=== PATIENT | female | born 1945 | race African-American/Black ===

== ENCOUNTER 2020-09-15 12:23 | Inpatient (IN) | payer MEDICARE ==
[2020-09-15 12:58] LABS: #Basophils 0.1 thou/uL (0.0-0.2); #Eosinphils 0.1 thou/uL (0.0-0.7); #Lymphocytes 1.8 thou/uL (1.20-3.40); #Monocytes 0.6 thou/uL (0.11-0.59); #Neutrophils 6.1 thou/uL (1.40-6.50); %Basophils 0.7 % (0.0-1.0); %Eosinophils 1.7 % (0.0-10.0); %Lymphocytes 20.6 % (21.0-51.0); %Monocytes 6.8 % (0.0-10.0); %Neutrophils 70.1 % (42.0-75.0); Hemoglobin 6.9 g/dL (12.0-16.0); Mean Corpuscular HGB CONC 32.3 g/dL (32.0-36.0); Mean Corpuscular Hemoglobin 26.3 pg (27.0-31.0); Mean Corpuscular Volume 81.5 fL (78.0-98.0); Platelet Count 328 thou/uL (130-400); RBC Distribution Width 15.8 % (11.5-14.5); Red Blood Cell (RBC) Count 2.62 mill/uL (4.20-5.40); White Blood Cell (WBC) Count 8.7 thou/uL (4.8-10.8)
[2020-09-15 13:30] LABS: ALT (SGPT) Less than 7 U/L (8-55); AST (SGOT) 11 U/L (5-34); Albumin 3.6 g/dL (3.4-4.8); Alkaline Phosphatase 78 U/L (40-110); Anion Gap 15 mmol/L (10-20); BUN (Urea Nitrogen) 58 mg/dL (9.8-20.1); Bilirubin, Total 0.5 mg/dL (0.2-1.2); Calc. Creatinine Clearance 0 mL/min (70-130); Calcium 9.8 mg/dL (7.8-10.44); Carbon Dioxide 18 mmol/L (23-31); Chloride 110 mmol/L (98-107); Globulin 4.2 g/dL (2.4-3.5); Glucose 75 mg/dL (83-110); Potassium 5.8 mmol/L (3.5-5.1); Protein, Total 7.8 g/dL (5.8-8.1); Sodium 137 mmol/L (136-145)
--- NOTE | 2020-09-15 13:45 | RAD ---
PORTABLE CHEST 1 VIEW: Date: 09/15/2020 Time: 1310 hours HISTORY: Chronic renal failure. Patient on dialysis. Dyspnea. FINDINGS/IMPRESSION: The heart size is borderline. The aorta is tortuous. There is plate of linear atelectatic change in t he left lower lung. No lobar consolidation, pneumothoraces, adriana pulmonary edema, or large effusions are seen. POS: OFF
[2020-09-15 17:12] LABS: HBSAg Index 0.34 S/CO (0-0.99); Hep B Surf Ag Non-Reactive S/CO (NonReactive); Hep C IgG Ab Non-Reactive (NonReactive); Hep C Index 0.14 S/CO (0-0.79)
[2020-09-15] MEDS ORDERED: CEFAZOLIN 2 GM in Premix Bag 1 BAG IVPB SCH (17:45)
[2020-09-15] MEDS ORDERED: Epoetin (ESRD) 20,000 UNITS/ML IVP ONE (18:05)
[2020-09-15] MEDS ORDERED: Epoetin (ESRD) 20,000 UNITS/ML IVP SCH (18:05)
[2020-09-15] MEDS ORDERED: Tuberculin PPD 0.1 ML VIAL I-DERMAL SCH ×3 (18:15→23:30)
[2020-09-15] MEDS ORDERED: EPOETIN ALFA-EPBX (ESRD) 10,000 UNIT/ML VIAL IVP SCH (18:15)
[2020-09-15 18:18] LABS: Hep B Surf AB Indeterminate (NonReactive)
[2020-09-15 18:19] LABS: HBSAB Concentration 10.57 mIU/mL
[2020-09-15 18:20] LABS: Hep B Core Total Index 4.37 S/CO (0-0.79)
[2020-09-15 18:21] LABS: Hep B Core Total Ab Reactive (NonReactive)
[2020-09-15] MEDS ORDERED: Acetaminophen 650 MG Suppository PR PRN (22:06)
[2020-09-15] MEDS ORDERED: Dextrose 50% Abboject 50 ML SYRINGE SLOW IVP PRN (22:09)
[2020-09-15] MEDS ORDERED: Dextrose 5% in Water 1,000 ML IV PRN (22:09)
[2020-09-15 22:53] LABS: Hemoglobin 6.4 g/dL (12.0-16.0)
--- NOTE | 2020-09-15 23:04 | CON ---
DATE OF CONSULTATION: HISTORY OF PRESENT ILLNESS: Milton Pineda is a 75-year-old black female with chronic kidney disease secondary to hypertension, presents to the emergency room with abnormal labs, in need of dialysis access. I have been asked by Dr. Pickett to see her regarding placement of hemodialysis catheter, Trialysis and possible graft. I saw her a few months ago and in April of 2020, she had a marking ultrasound with suboptimal veins and noted that a prosthetic graft, access was postponed until close to the time of dialysis. She now presents with a white count of 8, hemoglobin 6.9. Sodium 137, potassium 5.8, BUN 58, creatinine 8.31. I have been asked by Dr. Pickett to place a hemodialysis catheter and plan is to place a groin Trialysis catheter and in 24 to 48 hours, plan placement of a hemodialysis catheter and graft most likely. She understands risks and benefits, consents. ALLERGIES: NONE. SOCIAL HISTORY: Tobacco: None. Alcohol none. MEDICATIONS: Not reconciled. PAST SURGICAL HISTORY: Noncontributory. REVIEW OF SYSTEMS: Noncontributory. PAST MEDICAL HISTORY: Hypertension. PHYSICAL EXAMINATION: VITAL SIGNS: 150/88, respiratory rate 18, heart rate 76. HEAD, EARS, EYES, NOSE, AND THROAT: Unremarkable. LUNGS: Clear to auscultation. CARDIAC: Regular rate and rhythm without murmur or gallop. ABDOMEN: Soft, nontender. EXTREMITIES: Unremarkable. Palpable radial pulses. LABORATORY DATA: As noted above. ASSESSMENT AND PLAN: 1. End-stage renal disease. Plan, placement of a hemodialysis catheter. She understands risks and benefits, consents. 2. Hypertension. 3. Anemia. 4. Hyperkalemia. 5. Poor veins by ultrasound vein mapping in April. Job ID: [id number]
[2020-09-15 23:16] LABS: Anion Gap 14 mmol/L (10-20); BUN (Urea Nitrogen) 35 mg/dL (9.8-20.1); Calc. Creatinine Clearance 0 mL/min (70-130); Calcium 9.4 mg/dL (7.8-10.44); Carbon Dioxide 24 mmol/L (23-31); Chloride 106 mmol/L (98-107); Glucose 92 mg/dL (83-110); Magnesium 2.4 mg/dL (1.6-2.6); Potassium 4.4 mmol/L (3.5-5.1); Sodium 140 mmol/L (136-145)
[2020-09-15] MEDS: Acetaminophen 325 MG TAB PO PRN (23:20)
--- NOTE | 2020-09-15 23:34 | PDOC.HHP ---
Hospitalist HPI History of Present Illness: ADMISSION DATE: 09/15/2020 TIME OF ASSESSMENT: 2199 PRIMARY CARE PHYSICIAN: Fredy francisco CHIEF COMPLAINT: Abnormal labs HPI: This is a 75-year-old woman who presents to the emergency department due to issues with her potassium. She states she had laboratory studies 3 days ago and then received a call today instructing her to go to the ER due to abnormal labs. She was told her potassium was high and that she would need to have dialysis done. She has never had dialysis in the past. Reports feeling well in herself in recent days. Complains of chills and states she often feels cold easily but this is typical for her. She has not had any recent fevers or sweats. She was seen by Dr. Luciano who placed a hemodialysis catheter she has completed dialysis without any difficulties. She denies having any complaints and states she feels well in herself. Has not had any chest pain, palpitations or shortness of breath. No recent cough or hemoptysis. Denies having any lightheadedness or dizziness. No nausea or vomiting. Denies any urinary symptoms or bowel c hanges. She has not noted any black-colored stools or bright red blood per rectum. She suffers from chronic anemia and has required transfusions in the past however more recently she has been given iron infusions. ED COURSE: Baseline chest x-ray done in the emergency department showed a borderline heart size with a tortuous aorta. A plates of linear atelectatic change seen in the left lower lung. Labs showed a hemoglobin of 6.9, hematocrit 21.3, platelets 328, sodium 137, potassium 5.8, BUN 58, creatinine 8.31, GFR 6, glucose 75, LFTs normal Allergies/Adverse Reactions: Allergy/AdvReac Type Severity Reaction Status Date / Time No Known Allergies Allergy Verified 09/15/20 21:10 Home Medications: Medication Instructions Recorded Confirmed Type Amlodipine Besylate [amLODIPine 10 mg PO DAILY 09/15/20 09/15/20 History Besylate] Atorvastatin Calcium 20 mg PO HS 09/15/20 09/15/20 History Gabapentin 100 mg PO BID 09/15/20 09/15/20 History Metoprolol Tartrate 100 mg PO DAILY 09/15/20 09/15/20 History Sodium Bicarbonate 2 tab PO TID 09/15/20 09/15/20 History cloNIDine [Catapres] 0.1 mg PO BID 09/15/20 09/15/20 History hydrALAZINE HCl [Hydralazine HCl] 100 mg PO TID 09/15/20 09/15/20 History Past History: PAST MEDICAL HISTORY: 1. Hypertension 2. Chronic anemia 3. End-stage renal disease 4. History of diabetes, controlled with diet PAST SURGICAL HISTORY: None SOCIAL HISTORY: Patient lives with her family. Denies any tobacco use, alcohol consumption or drug use. FAMILY HISTORY: Noncontributory Hospitalist Exam Vitals: Vital Signs (12 hours) Temp Pulse BP Pulse Ox 09/15/20 19:55 98.6 F 67 186/80 H 100 General Appearance: NAD, awake alert General - other findings: Vitals: Temp 98.6, HR Troy VII, O2 sat 100% on room air, BP 186/80. Eye: PERRL, anicteric sclera ENT: normocephalic atraumatic, no oropharyngeal lesions, moist mucosa Neck: supple, no lymphadenopathy Heart: RRR, normal peripheral pulses Respiratory: CTAB, normal chest expansion Gastrointestinal: soft, non-tender, non-distended, normal bowel sounds, no guarding, no rigidity Extremities: 1+ LE edema Skin: normal turgor, no lesions, no rashes Skin - other findings: Lower legs notable for dry skin with scaling Neurological: cranial nerve grossly intact, normal sensation to touch, no weakness, no focal deficits Musculoskeletal: normal tone, normal strength, no muscle wasting Psychiatric: normal affect, normal behavior, A&O x 3 Hospitalist Results Result Diagrams: 09/15/20 22:42 09/15/20 22:42 Lab results: Laboratory Last Values WBC 8.7 thou/uL (4.8-10.8) 09/15/20 12:50 RBC 2.62 mill/uL (4.20-5.40) L 09/15/20 12:50 Hgb 6.4 g/dL (12.0-16.0) L 09/15/20 22:42 Hct 20.4 % (36.0-47.0) L 09/15/20 22:42 MCV 81.5 fL (78.0-98.0) 09/15/20 12:50 MCH 26.3 pg (27.0-31.0) L 09/15/20 12:50 MCHC 32.3 g/dL (32.0-36.0) 09/15/20 12:50 RDW 15.8 % (11.5-14.5) H 09/15/20 12:50 Plt Count 328 thou/uL (130-400) 09/15/20 12:50 MPV 8.0 fL (7.4-10.4) 09/15/20 12:50 Neutrophils % 70.1 % (42.0-75.0) 09/15/20 12:50 Lymphocytes % 20.6 % (21.0-51.0) L 09/15/20 12:50 Monocytes % 6.8 % (0.0-10.0) 09/15/20 12:50 Eosinophils % 1.7 % (0.0-10.0) 09/15/20 12:50 Basophils % 0.7 % (0.0-1.0) 09/15/20 12:50 Neutrophils # 6.1 thou/uL (1.40-6.50) 09/15/20 12:50 Lymphocytes # 1.8 thou/uL (1.20-3.40) 09/15/20 12:50 Monocytes # 0.6 thou/uL (0.11-0.59) H 09/15/20 12:50 Eosinophils # 0.1 thou/uL (0.0-0.7) 09/15/20 12:50 Basophils # 0.1 thou/uL (0.0-0.2) 09/15/20 12:50 Sodium 140 mmol/L (136-145) 09/15/20 22:42 Potassium 4.4 mmol/L (3.5-5.1) 09/15/20 22:42 Chloride 106 mmol/L (98-107) 09/15/20 22:42 Carbon Dioxide 24 mmol/L (23-31) 09/15/20 22:42 Anion Gap 14 mmol/L (10-20) 09/15/20 22:42 BUN 35 mg/dL (9.8-20.1) H 09/15/20 22:42 Creatinine 5.78 mg/dL (0.6-1.1) H 09/15/20 22:42 Estimated GFR (MDRD) 9 09/15/20 22:42 Glucose 92 mg/dL (83-110) 09/15/20 22:42 POC Glucose 86 mg/dL (70-100) 09/15/20 22:51 Lactic Acid 2.0 mmol/L (0.5-2.2) 09/15/20 22:42 Calcium 9.4 mg/dL (7.8-10.44) 09/15/20 22:42 Magnesium 2.4 mg/dL (1.6-2.6) 09/15/20 22:42 Total Bilirubin 0.5 mg/dL (0.2-1.2) 09/15/20 12:50 AST 11 U/L (5-34) 09/15/20 12:50 ALT Less than 7 U/L (8-55) L 09/15/20 12:50 Alkaline Phosphatase 78 U/L (40-110) 09/15/20 12:50 Troponin I 0.013 ng/mL (< 0.028) 09/15/20 12:50 Serum Total Protein 7.8 g/dL (5.8-8.1) 09/15/20 12:50 Albumin 3.6 g/dL (3.4-4.8) 09/15/20 12:50 Globulin 4.2 g/dL (2.4-3.5) H 09/15/20 12:50 Albumin/Globulin Ratio 0.9 g/dL (1.2-2.2) L 09/15/20 12:50 Hep Bs Antigen Non-Reactive S/CO (NonReactive) 09/15/20 12:50 Hep Bs Antibody Indeterminate (NonReactive) 09/15/20 12:50 Hep Bs Antibody Index 10.57 mIU/mL 09/15/20 12:50 Hep B Core Total Ab Reactive (NonReactive) H 09/15/20 12:50 Hepatitis C Antibody Non-Reactive (NonReactive) 09/15/20 12:50 Chest x-ray Status: report reviewed by al Hospitalist H&P A/P (1) Hyperkalemia Code(s): E87.5 - HYPERKALEMIA Status: Acute Assessment and Plan: S/p hemodialysis Repeat BMP to re-assess potassium level Baseline EKG ordered (2) ESRD needing dialysis Code(s): N18.6 - END STAGE RENAL DISEASE; Z99.2 - DEPENDENCE ON RENAL DIALYSIS Status: Acute Assessment and Plan: S/p HD Further recommendations as per Dr. Pickett Monitor renal function (3) Chronic anemia Code(s): D64.9 - ANEMIA, UNSPECIFIED Status: Chronic Assessment and Plan: Likely secondary to ESRD Repeat H/H to assess for further decline Type & Screen ordered Consider transfusion Iron studies ordered (4) History of diet-controlled gestational diabetes mellitus Code(s): Z86.32 - PERSONAL HISTORY OF GESTATIONAL DIABETES Status: Chronic Assessment and Plan: Monitor glucose Accu-cheks ACHS Hypoglycemia protocol ordered (5) Essential hypertension Code(s): I10 - ESSENTIAL (PRIMARY) HYPERTENSION Status: Chronic Assessment and Plan: Monitor BP Resume home meds once verified Plan: DVT Prophylaxis with mechanical SCDs CODE STATUS FULL Case discussed with attending who agrees with plan as above.
[2020-09-16 01:38] LABS: Iron 19 ug/dL (50-170); Iron Binding Capacity, Total 206 mcg/dL (265-497)
[2020-09-16 04:41] LABS: Ferritin 60.32 ng/mL (10-291)
[2020-09-16 07:00] LABS: #Basophils 0.1 thou/uL (0.0-0.2); #Eosinphils 0.1 thou/uL (0.0-0.7); #Lymphocytes 1.7 thou/uL (1.20-3.40); #Monocytes 0.8 thou/uL (0.11-0.59); %Basophils 0.6 % (0.0-1.0); %Eosinophils 1.2 % (0.0-10.0); %Lymphocytes 19.3 % (21.0-51.0); %Monocytes 9.2 % (0.0-10.0); %Neutrophils 69.7 % (42.0-75.0); Hemoglobin 6.8 g/dL (12.0-16.0); Mean Corpuscular HGB CONC 32.4 g/dL (32.0-36.0); Mean Corpuscular Hemoglobin 27.4 pg (27.0-31.0); Mean Corpuscular Volume 84.4 fL (78.0-98.0); Mean Platelet Volume 8.2 fL (7.4-10.4); Platelet Count 269 thou/uL (130-400); RBC Distribution Width 18.3 % (11.5-14.5); Red Blood Cell (RBC) Count 2.48 mill/uL (4.20-5.40); White Blood Cell (WBC) Count 8.6 thou/uL (4.8-10.8)
[2020-09-16 07:20] LABS: ALT (SGPT) Less than 7 U/L (8-55); AST (SGOT) 10 U/L (5-34); Albumin 3.1 g/dL (3.4-4.8); Alkaline Phosphatase 67 U/L (40-110); Anion Gap 12 mmol/L (10-20); BUN (Urea Nitrogen) 39 mg/dL (9.8-20.1); Bilirubin, Total 0.7 mg/dL (0.2-1.2); Calc. Creatinine Clearance 0 mL/min (70-130); Calcium 9.3 mg/dL (7.8-10.44); Carbon Dioxide 23 mmol/L (23-31); Chloride 110 mmol/L (98-107); Globulin 3.5 g/dL (2.4-3.5); Glucose 74 mg/dL (83-110); Protein, Total 6.6 g/dL (5.8-8.1); Sodium 140 mmol/L (136-145)
--- NOTE | 2020-09-16 08:24 | CON ---
DATE OF CONSULTATION: 09/15/2020 CONSULTING PHYSICIAN: ER physician. REASON FOR CONSULTATION: Worsening renal labs. REASON FOR ADMISSION: Worsening labs. HISTORY OF PRESENT ILLNESS: A 75-year-old female with history of hypertension, type-2 diabetes, CKD, episode of gout, Parkinson disease, came to the hospital with abnormal labs. Dr. Pickett has been following her and her labs are getting worse. She was edematous and was advised to come to the hospital to start on dialysis. She had dialysis catheter placement by Dr. Luciano in the ER and was seen during dialysis and tolerating well. Plan is to start on dialysis and place her at [place], which is closer to her home. No nausea, vomiting, chest pain, or palpitation reported. PAST MEDICAL HISTORY: Positive for; 1. Chronic kidney disease. 2. Type 2 diabetes. 3. Hypertension. 4. Episode of gout. 5. Anemia. 6. Gastritis. 7. Parkinson disease. PAST SURGICAL HISTORY: None reported. HOME MEDICATIONS: Reviewed. ALLERGIES: NO KNOWN DRUG ALLERGIES. SOCIAL HISTORY: Former smoker. No alcohol or illicit drug abuse. FAMILY HISTORY: No history of kidney disease. REVIEW OF SYSTEMS: CONSTITUTIONAL: Negative for weight loss or gain, ability to conduct usual activities. SKIN: Negative for rash, itching. EYES: Negative for double vision, pain. ENT/MOUTH: Negative for nose bleeding, neck stiffness, pain, tenderness. CARDIOVASCULAR: Negative for palpitations, dyspnea on exertion, orthopnea. RESPIRATORY: Negative for shortness of breath, wheezing, cough, hemoptysis, fever or night sweats. GASTROINTESTINAL: Negative for poor appetite, abdominal pain, heartburn, nausea, vomiting, constipation, or diarrhea. GENITOURINARY: Negative for urgency, frequency, dysuria, nocturia. MUSCULOSKELETAL: Negative for pain, swelling. NEUROLOGIC/PSYCHIATRIC: Negative for anxiety, depression. ALLERGY/IMMUNOLOGIC: Negative for skin rash, bleeding tendency. PHYSICAL EXAMINATION: GENERAL: This is a well-built female, in no apparent distress. VITAL SIGNS: Reviewed. HEENT: Atraumatic, normocephalic. Oral mucosa is moist. NECK: Supple. CV: S1, S2. Rate and rhythm regular. RESPIRATORY: Clear. GI: Abdomen is soft. MUSCULOSKELETAL: 2+ edema. DERMATOLOGIC: No skin rash. NEUROLOGICAL: Alert and awake. PSYCHIATRIC: Normal mood and affect. LABORATORY DATA: Hemoglobin is 6.9. Potassium 5.8, BUN is 58, creatinine is 8.2. ASSESSMENT AND PLAN: 1. End-stage renal disease. Plan is to start dialysis. A temporary dialysis access was placed. Appreciate help from surgery and plan to have fistula and tunneled dialysis catheter later on once she is more stable. 2. Anemia. We will add Epogen. 3. Hyperkalemia. 4. . 5. Hypoalbuminemia. 6. Proteinuria. 7. History of diabetes. 8. History of hypertension. Plan is to add JOSE. Follow up with Case Management for outpatient placement. The patient is seen during dialysis today and tolerating well. We will plan for 2 hours of dialysis today. We will follow. Thank you for the consult. Job ID: [id number]
--- NOTE | 2020-09-16 08:42 | OP ---
DATE OF PROCEDURE: 09/15/2020 PREOPERATIVE DIAGNOSES: End-stage renal disease, hyperkalemia, need dialysis access. POSTOPERATIVE DIAGNOSES: End-stage renal disease, hyperkalemia, need dialysis access. PROCEDURE PERFORMED: Right femoral vein Trialysis catheter. ANESTHESIA: 1% Xylocaine. DESCRIPTION OF PROCEDURE: With the patient at bedside in the emergency room, right groin was clipped of hair, prepared with ChloraPrep and draped in routine fashion. Local anesthetic was infiltrated in the skin and subcutaneous tissue about the operative site. Trocar catheter cannulated into the femoral vein. J-wire threaded, trocar catheter removed. Skin site enlarged sharply. Smaller and medium size dilators placed and removed from the femoral vein. Distal port of the Trialysis catheter placed over the J-wire into the femoral vein and secured with 3-0 nylon suture. J-wire removed. Each port filled with blood and flushed with heparinized saline solution. Patient tolerated the procedure well. Job ID: [id number]
[2020-09-16] MEDS: EPOETIN ALFA-EPBX (ESRD) 10,000 UNIT/ML VIAL IVP SCH (12:41)
[2020-09-16 14:17] LABS: SARS-CoV-2 PCR by NAA Not Detected (NotDetected)
--- NOTE | 2020-09-16 16:06 | PRG ---
DATE OF SERVICE: 09/16/2020 SUBJECTIVE: Patient was seen and examined at bedside and overnight events noted. Patient denies any shortness of breath or chest pain or palpitation. No history of nausea or vomiting or diarrhea or fever or chills or cramps. OBJECTIVE: GENERAL: This is a well-built female, in no apparent distress. VITAL SIGNS: Temperature 97. Heart rate 64. Respiratory rate 16. Blood pressure 133/72. HEENT: Atraumatic, normocephalic. Oral mucosa is moist NECK: Supple. CARDIOVASCULAR: S1, S2 heard. Rate and rhythm regular. RESPIRATORY: Clear to auscultation. GASTROINTESTINAL: Abdomen is soft. MUSCULOSKELETAL: No tenderness. No edema. DERMATOLOGIC: No skin rash. NEUROLOGIC: Alert and awake and oriented X3. No focal neurologic deficits. Moving all the extremities. PSYCHIATRIC: Mood and affect normal. LABORATORY DATA: Potassium 5.0, BUN is 39, creatinine is 6.02. Hemoglobin is 6.8. ASSESSMENT AND PLAN: 1. End-stage renal disease. Plan to start dialysis. 2. Anemia. Add Epogen. Status post transfusion. 3. Hyperkalemia. 4. Proteinuria. 5. Diabetes. 6. History of hypertension. Transfuse today and have dialysis. Job ID: [id number]
[2020-09-16] MEDS ORDERED: hydrALAZINE 20 MG/ML VIAL SLOW IVP PRN (16:59)
--- NOTE | 2020-09-16 17:02 | PDOC.HOSPP ---
- Subjective Subjective: pt is tolerating dialysis. no sob. No acute event overnight. - Objective Vital Signs & Weight: Vital Signs (12 hours) Temp Pulse Pulse Resp BP BP Pulse Ox 09/16/20 11:26 98.9 F 70 16 188/81 H 09/16/20 11:07 98.7 F 76 16 133/72 09/16/20 10:52 99.2 F 76 16 166/86 H 09/16/20 08:13 98.7 F 64 18 168/76 H 97 09/16/20 08:04 98.6 F 67 20 179/82 H 09/16/20 08:00 97 I&O: 09/15/20 09/16/20 09/17/20 06:59 06:59 06:59 Intake Total 0 920 Balance 0 920 Result Diagrams: 09/16/20 06:20 09/16/20 06:20 Additional Labs: Accuchecks 09/16/20 09/16/20 09/15/20 12:07 04:39 22:51 POC Glucose 68 L 73 86 Radiology Reviewed by me: Yes EKG Reviewed by me: Yes Hospitalist ROS - Medication Medications: Active Medications Generic Name Dose Route Start Last Admin Trade Name Freq PRN Reason Stop Dose Admin Acetaminophen 650 mg 09/15/20 22:06 09/15/20 23:20 Acetaminophen 325 Mg Tab PO 650 mg Q4H PRN Administration Headache/Fever/Mild Pain (1-3) Epoetin Ed-epbx 10,000 unit 09/16/20 09:00 09/16/20 12:41 Epoetin Ed-Epbx (Esrd) 10,000 Unit/Ml Vial IVP 10,000 unit [facility] Administration Hospitalist Exam Vitals: Vital Signs (12 hours) Temp Pulse Pulse Resp BP BP Pulse Ox 09/16/20 11:26 98.9 F 70 16 188/81 H 09/16/20 11:07 98.7 F 76 16 133/72 09/16/20 10:52 99.2 F 76 16 166/86 H 09/16/20 08:13 98.7 F 64 18 168/76 H 97 09/16/20 08:04 98.6 F 67 20 179/82 H 09/16/20 08:00 97 General Appearance: NAD Eye: PERRL ENT: normocephalic atraumatic Neck: supple Heart: RRR Respiratory: CTAB Extremities: no cyanosis Skin: normal turgor Hosp A/P - Plan (1) Hyperkalemia Code(s): E87.5 - HYPERKALEMIA Status: Acute Assessment and Plan: resolved with HD (2) ESRD needing dialysis Code(s): N18.6 - END STAGE RENAL DISEASE; Z99.2 - DEPENDENCE ON RENAL DIALYSIS Status: Acute Assessment and Plan: rpt HD today, further mgt as per nephrology (3) Chronic anemia Code(s): D64.9 - ANEMIA, UNSPECIFIED Status: Chronic Assessment and Plan: s/p transfuse, Epogen added by nephrology (4) History of diet-controlled gestational diabetes mellitus Code(s): Z86.32 - PERSONAL HISTORY OF GESTATIONAL DIABETES Status: Chronic Assessment and Plan: Monitor glucose Accu-cheks ACHS Hypoglycemia protocol ordered (5) Essential hypertension Code(s): I10 - ESSENTIAL (PRIMARY) HYPERTENSION Status: Chronic Assessment and Plan: BP elevated, resumed home med
[2020-09-16] MEDS: Gabapentin 100 MG CAP PO SCH (20:35)
[2020-09-16] MEDS: cloNIDine 0.1 MG TAB PO SCH (20:36)
[2020-09-16] MEDS: Sodium Bicarbonate Tab 325 MG TAB PO SCH (20:37)
[2020-09-16] MEDS: hydrALAZINE 25 MG TAB PO SCH (20:37)
[2020-09-16] MEDS: Atorvastatin Calcium 20 MG TAB PO SCH (20:37)
[2020-09-16] MEDS ORDERED: READ PPD TEST SITE PO SCH (23:59)
[2020-09-17] MEDS ORDERED: Ondansetron PF 4 MG/2 ML Vial IVP SCH (07:45)
[2020-09-17 07:53] LABS: #Eosinphils 0.1 thou/uL (0.0-0.7); #Lymphocytes 1.3 thou/uL (1.20-3.40); #Monocytes 0.9 thou/uL (0.11-0.59); #Neutrophils 6.9 thou/uL (1.40-6.50); %Basophils 0.4 % (0.0-1.0); %Eosinophils 0.8 % (0.0-10.0); %Lymphocytes 13.7 % (21.0-51.0); %Monocytes 10.1 % (0.0-10.0); %Neutrophils 75.1 % (42.0-75.0); Hemoglobin 6.9 g/dL (12.0-16.0); Mean Corpuscular HGB CONC 32.3 g/dL (32.0-36.0); Mean Corpuscular Hemoglobin 27.4 pg (27.0-31.0); Mean Corpuscular Volume 84.9 fL (78.0-98.0); Mean Platelet Volume 8.4 fL (7.4-10.4); Platelet Count 239 thou/uL (130-400); RBC Distribution Width 17.4 % (11.5-14.5); Red Blood Cell (RBC) Count 2.53 mill/uL (4.20-5.40); White Blood Cell (WBC) Count 9.2 thou/uL (4.8-10.8)
[2020-09-17 08:01] LABS: Anion Gap 14 mmol/L (10-20); BUN (Urea Nitrogen) 19 mg/dL (9.8-20.1); Calc. Creatinine Clearance 0 mL/min (70-130); Calcium 9.9 mg/dL (7.8-10.44); Carbon Dioxide 27 mmol/L (23-31); Chloride 103 mmol/L (98-107); Glucose 85 mg/dL (83-110); Potassium 3.9 mmol/L (3.5-5.1); Sodium 140 mmol/L (136-145)
[2020-09-17] MEDS: Amlodipine 10 MG TAB PO SCH (08:38)
[2020-09-17] MEDS: Metoprolol Tartrate 100 MG TAB PO SCH (08:39)
[2020-09-17] MEDS: Gabapentin 100 MG CAP PO SCH ×2 (08:39→20:06)
[2020-09-17] MEDS: cloNIDine 0.1 MG TAB PO SCH ×2 (08:39→20:05)
[2020-09-17] MEDS: Sodium Bicarbonate Tab 325 MG TAB PO SCH ×3 (08:39→20:07)
[2020-09-17] MEDS: hydrALAZINE 25 MG TAB PO SCH ×3 (08:39→20:06)
[2020-09-17] MEDS ORDERED: Bupivacaine PF 0.5% 30 ML VIAL ONE ×2 (08:54→14:54)
[2020-09-17] MEDS ORDERED: PROPOFOL 200 MG/20 ML VIAL ONE (08:54)
[2020-09-17] MEDS ORDERED: READ PPD TEST SITE PO SCH ×2 (09:00→23:59)
[2020-09-17] MEDS: Pantoprazole 40 MG VIAL IVP SCH ×2 (09:56→20:07)
--- NOTE | 2020-09-17 12:16 | CON ---
DATE OF CONSULTATION: 09/17/2020 REASON FOR CONSULTATION: Reported hematemesis. HISTORY OF PRESENT ILLNESS: Ms. Pineda is a 75-year-old female with end- stage renal disease, on maintenance hemodialysis; diabetes; hypertension; and chronic anemia, who was admitted to the hospital 2 days ago with hyperkalemia. She has had no previous GI history. Reportedly overnight, the evening shift nurse reported that she had a bout of vomiting with some blood in it. There is no carnification of blood or any indication of how much the blood was witnessed. Ms. Pineda herself denies having had any nausea or vomiting. Currently, she reports feeling fine without any abdominal pain, nausea, or vomiting. She denies having had any previous peptic ulcer disease or any previous GI bleeding. She is due for her AV graft fistula surgery later this afternoon. PAST MEDICAL HISTORY: 1. End-stage renal disease, on hemodialysis. 2. Hypertension. 3. Chronic anemia from chronic renal disease. 4. History of adult onset diabetes. ALLERGIES: NONE. MEDICATIONS: At home, include: 1. Metoprolol. 2. Amlodipine. 3. Sodium bicarbonate. 4. Atorvastatin. 5. Hydralazine. 6. Gabapentin. 7. Clonidine patch. SOCIAL HISTORY: The patient denies any tobacco or alcohol usage. FAMILY HISTORY: Negative for any reported GI problem, liver disease, or GI malignancy. REVIEW OF SYSTEMS: Very difficult to obtain from the patient as she does not provide much information. However, when asked, she denies any symptoms per 10- point review of systems. PHYSICAL EXAMINATION: VITAL SIGNS: Temperature is 99.3, blood pressure 163/90, pulse of 83. GENERAL: She is alert, not very conversant, but does not appear in any distress. HEENT: Anicteric sclerae. Oropharynx is clear. CV: Normal S1 and S2. Regular rate and rhythm. CHEST: Breath sounds, poor excursion. ABDOMEN: Mildly protuberant, but soft. No distention. No tympany. No tenderness. She has active bowel sounds. EXTREMITIES: No edema. LABORATORY DATA: WBCs 9.2, hemoglobin 6.9 that is after 2 units of RBC transfusion and she had a hemoglobin of 8.5 from 10/2019, and platelet count is 339. Electrolytes within normal range. Creatinine is 4.32. ASSESSMENT: 1. Reported limited hematemesis of unknown amount from the pooling operator. The patient denies having any nausea or vomiting. Clinically, there does not appear to be any evidence of ongoing bleeding or anything is significant bleeding at the present time. The patient is without any weakness, coffee-ground emesis, hematemesis, or melena so far on today shift. 2. Kqgym-zd-lnxorbh anemia status post 2 units of RBC transfusion. 3. End-stage renal disease, on dialysis. 4. Hypertension. When asked about an upper endoscopy to elucidate source of potential bleeding, the patient refused to have any procedure done at the present time. RECOMMENDATIONS: 1. Continue observation and expectant management as patient denies having any bleeding nor desires any indicated interventin and procedure. 2. Empiric pantoprazole 40 mg b.i.d., can decrease down to daily and change to p.o. after surgery if she has no recurrence evidence of bleeding. 3. Please re-call GI Service if there is any evidence of GI bleeding. Job ID: [id number] MTDD
--- NOTE | 2020-09-17 14:06 | PQF ---
CLINICAL DOCUMENTATION CLARIFICATION FORM: Dear Dr. Castellanos: Date / Time: 09/17/20 3609 Please exercise your independent, professional judgment in responding to the clarification form. Clinical indicators are provided on the bottom of this form for your review Please check appropriate box(es) Acute on Chronic Anemia: [ ] Acute blood loss anemia [ ] Anemia: [ ] Nutritional [ ] Drug induced (specify) [ ] Hereditary [ ] Acquired [X ] Chronic Anemia: [X ] Blood loss [ ] Simple [ ] Due to Vitamin B12 Deficiency [ ] Other diagnosis [ ] Unable to determine In addition, please specify: Present on Admission (POA): [ X ] Yes [ ] No [ ] Unable to determine Physician Signature: Date/Time: For continuity of documentation, please document condition throughout progress notes and discharge summary. Thank You. To be completed by CDI/Coding staff for physician review: Present Clinical Indicators - Signs / Symptoms / Labs Results and Location in Medical Record [ ] Acute bleed /anemia Acute on Chronic Anemia - Dr. Lao 09/17/20 [ ] [ ] Low hemoglobin and/or hematocrit H/H 6.9 Lab Results 09/15/20-09/17/20 [ ] [ ] Melena/Hematochezia Hematemesis- Dr. Lao 09/17/20 [ ] Present Risk Factors Results and Location in Medical Record [ ] ESRD Chronic anemia,ESRD-Attending H&P 09/15/20 [ ] Surgery Trialysis Catheter placement - Dr. Luciano OP Note 09/15/20 [ ] [ ] Present Treatments Results and Location in Medical Record [ ] Transfusion of blood products PRBC x2 units- Blood Bank Transfusions 09/16/20 [ ] Blood stimulating drugs (Procrit, Iron) Epoetin - MAR 09/16/20 CDS/Auto [employer]ision [employer] Instructor Signature: Elizabeth Cadet Phone #: [phone] Date/Time: 09/17/20 0579 This is a permanent part of the Medical Record [facility]
[2020-09-17] MEDS ORDERED: Sodium Chloride 0.9% 20 ML ONE (14:54)
[2020-09-17] MEDS ORDERED: EPINEPHrine 1 MG/10 ML Abboject SYRINGE ONE (14:54)
[2020-09-17] MEDS ORDERED: Heparin 10,000 UNITS/ 10 ML VIAL ONE (14:54)
[2020-09-17] MEDS ORDERED: Heparin 5,000 UNITS/ML VIAL ONE (14:54)
[2020-09-17] MEDS ORDERED: Lidocaine 2% PF 5 ML VIAL ONE (14:54)
[2020-09-17] MEDS ORDERED: Protamine Sulfate 50 MG/5 ML VIAL ONE (14:54)
[2020-09-17] MEDS ORDERED: EPINEPHrine 1 MG/ML AMP ONE (14:56)
--- NOTE | 2020-09-17 14:59 | PRG ---
DATE OF SERVICE: 09/17/2020 SUBJECTIVE: Patient was seen and examined at bedside and overnight events noted. Patient denies any shortness of breath or chest pain or palpitation. No history of nausea or vomiting or diarrhea or fever or chills or cramps. OBJECTIVE: GENERAL: This is a well-built female, in no apparent distress. VITAL SIGNS: Temperature 99.3. Heart rate 63. Respiratory rate 18. Blood pressure . HEENT: Atraumatic, normocephalic. Oral mucosa is moist. NECK: Supple. CARDIOVASCULAR: S1, S2 heard. Rate and rhythm regular. RESPIRATORY: Clear to auscultation. GASTROINTESTINAL: Abdomen is soft. MUSCULOSKELETAL: No tenderness. No edema. DERMATOLOGIC: No skin rash. NEUROLOGIC: Alert and awake and oriented x3. No focal neurologic deficits. Moving all the extremities. PSYCHIATRIC: Mood and affect normal. LABORATORY DATA: Potassium 3.9, BUN is 19, creatinine is 4.3. ASSESSMENT AND PLAN: 1. End-stage renal disease. Continue on dialysis as tolerated. Follow with Case Management. 2. Anemia. Continue JOSE. 3. Hyperkalemia, better. 4. History of diabetes. 5. History of hypertension. Continue dialysis as tolerated. Rule out any bleed. Monitor hemoglobin. Job ID: [id number]
[2020-09-17] MEDS ORDERED: Fentanyl 100 MCG/2 ML VIAL ONE (15:08)
[2020-09-17] MEDS ORDERED: PROPOFOL 40 ML ONE (15:08)
[2020-09-17] MEDS ORDERED: XYLOCAINE 2%-EPI 1:100,000 20 ML VIAL ONE (15:47)
[2020-09-17] MEDS ORDERED: PACU-Morphine 4MG/ML VIAL SLOW IVP PRN (16:54)
[2020-09-17] MEDS ORDERED: Ondansetron HCl/PF 4 MG/2 ML Vial IVP PRN (16:54)
[2020-09-17] MEDS ORDERED: Promethazine HCl 25 MG/ML VIAL IM PRN (16:54)
[2020-09-17] MEDS ORDERED: Promethazine HCl 25 MG/ML VIAL SLOW IVP PRN (16:54)
--- NOTE | 2020-09-17 17:06 | PDOC.HOSPP ---
- Subjective Subjective: Patient was seen examined at bedside. Patient had an episode of hematemesis overnight. Her hemoglobin however remained stable. Discussed with GI, patient declined further endoscopic study at this time. We will continue with conservative management, and follow expectantly. - Objective Vital Signs & Weight: Vital Signs (12 hours) Temp Pulse Resp BP BP Pulse Ox 09/17/20 14:37 83 163/90 H 09/17/20 08:39 83 163/90 H 09/17/20 08:38 83 09/17/20 08:00 99.3 F 83 18 193/77 H 94 L I&O: 09/16/20 09/17/20 09/18/20 06:59 06:59 06:59 Intake Total 0 1400 Output Total 1100 Balance 0 300 Result Diagrams: 09/17/20 07:20 09/17/20 07:20 Additional Labs: Accuchecks 09/17/20 09/17/20 09/17/20 10:46 04:48 02:17 POC Glucose 84 77 89 09/16/20 09/16/20 19:51 17:10 POC Glucose 80 79 Radiology Reviewed by me: Yes EKG Reviewed by me: Yes Hospitalist ROS - Medication Medications: Active Medications Generic Name Dose Route Start Last Admin Trade Name Freq PRN Reason Stop Dose Admin Acetaminophen 650 mg 09/15/20 22:06 09/15/20 23:20 Acetaminophen 325 Mg Tab PO 650 mg Q4H PRN Administration Headache/Fever/Mild Pain (1-3) Amlodipine Besylate 10 mg 09/17/20 09:00 09/17/20 08:38 Amlodipine 10 Mg Tab PO Not Given DAILY YOLANDA Atorvastatin Calcium 20 mg 09/16/20 21:00 09/16/20 20:37 Atorvastatin Calcium 20 Mg Tab PO 20 mg HS YOLANDA Administration Clonidine 0.1 mg 09/16/20 21:00 09/17/20 08:39 Clonidine 0.1 Mg Tab PO Not Given BID YOLANDA Epoetin Ed-epbx 10,000 unit 09/16/20 09:00 09/16/20 12:41 Epoetin Ed-Epbx (Esrd) 10,000 Unit/Ml Vial IVP 10,000 unit TuThSa YOLANDA Administration Gabapentin 100 mg 09/16/20 21:00 09/17/20 08:39 Gabapentin 100 Mg Cap PO Not Given BID YOLANDA Hydralazine HCl 100 mg 09/16/20 21:00 09/17/20 14:37 Hydralazine 25 Mg Tab PO Not Given TID [facility] Metoprolol Tartrate 100 mg 09/17/20 09:00 09/17/20 08:39 Metoprolol Tartrate 100 Mg Tab PO Not Given DAILY [facility] Read Ppd Test Site 0 each 09/16/20 23:59 09/17/20 00:00 PO 09/17/20 02:00 1 each 2359 [facility] Administration Pantoprazole Sodium 40 mg 09/17/20 09:00 09/17/20 09:56 Pantoprazole 40 Mg Vial IVP 40 mg Q12HR YOLANDA Administration Sodium Bicarbonate 650 mg 09/16/20 21:00 09/17/20 14:38 Sodium Bicarbonate Tab 325 Mg Tab PO Not Given TID [facility] Hospitalist Exam Vitals: Vital Signs (12 hours) Temp Pulse Resp BP BP Pulse Ox 09/17/20 14:37 83 163/90 H 09/17/20 08:39 83 163/90 H 09/17/20 08:38 83 09/17/20 08:00 99.3 F 83 18 193/77 H 94 L General Appearance: NAD Eye: PERRL ENT: normocephalic atraumatic Neck: supple Heart: RRR, no murmur Respiratory: CTAB, no wheezes Gastrointestinal: soft, non-tender Extremities: no cyanosis Skin: normal turgor Neurological: cranial nerve grossly intact Musculoskeletal: normal tone Psychiatric: normal affect, normal behavior, A&O x 3 Hosp A/P - Plan (1) Hyperkalemia Code(s): E87.5 - HYPERKALEMIA Status: Acute Assessment and Plan: resolved with HD (2) ESRD needing dialysis Code(s): N18.6 - END STAGE RENAL DISEASE; Z99.2 - DEPENDENCE ON RENAL DIALYSIS Status: Acute Assessment and Plan: rpt HD today, further mgt as per nephrology CM is working for outpatient dialysis chair (3) Chronic anemia Code(s): D64.9 - ANEMIA, UNSPECIFIED Status: Chronic Assessment and Plan: s/p transfuse, Epogen added by nephrology (4) History of diet-controlled gestational diabetes mellitus Code(s): Z86.32 - PERSONAL HISTORY OF GESTATIONAL DIABETES Status: Chronic Assessment and Plan: Monitor glucose Accu-cheks ACHS Hypoglycemia protocol ordered (5) Essential hypertension Code(s): I10 - ESSENTIAL (PRIMARY) HYPERTENSION Status: Chronic Assessment and Plan: BP elevated, resumed home med (6) Hematemesis Reportedly happened overnight. Patient was evaluated by GI. Patient declined further endoscopic study. We will continue with PPI, and follow expectantly. Repeat CBC in a.m.
--- NOTE | 2020-09-17 17:19 | RAD ---
PORTABLE CHEST: 09/17/20 HISTORY: Status post catheter placement. COMPARISON: 09/15/20 study. Heart size is enlarged. Patient is rotated on this exam. Right sided Hemosplit catheter is seen. Cath eter tip overlies the superior vena cava. I do not see any signs of pneumothorax. Left lower lobe par enchymal changes are again seen. IMPRESSION: Placement of right sided Hemosplit catheter. No pneumothorax. POS: THANG
--- NOTE | 2020-09-17 19:23 | OP ---
DATE OF PROCEDURE: 09/17/2020 PREOPERATIVE DIAGNOSES: End-stage renal disease, ultrasound vein mapping suggested poor veins for access. POSTOPERATIVE DIAGNOSES: End-stage renal disease, ultrasound vein mapping suggested poor veins for access, with acceptable veins in left antecubital. PROCEDURES PERFORMED: Right IJ cuffed tunneled hemodialysis catheter, ultrasound and fluoroscopy used, AngioDynamics pre-curved catheter . Left arm primary fistula, antecubital vein to proximal radial artery, both of excellent caliber. Perforating branch ligated. Outflow basilic and cephalic veins, both accepted 4 mm coronary dilators calibration. Good Doppler signal at the end. ANESTHESIA: Regional, TIVA, local 0.5% Marcaine 30 mL mixed with 1% Xylocaine with epinephrine 20 mL. DESCRIPTION OF PROCEDURE: The patient was taken to the operating room, where under intravenous sedation, left upper extremity regional anesthesia, neck and chest and left upper extremity prepared with ChloraPrep and draped in routine fashion. Local anesthetic was infiltrated in the skin and subcutaneous tissue about the operative sites. Trocar catheter under ultrasound guidance cannulated the right internal jugular vein. J-wire threaded, trocar catheter removed. Skin incision site enlarged sharply. Stab incision made over the right chest. Tunneling device used to tunnel the pre-curved AngioDynamics cuffed tunneled hemodialysis catheter between the 2 incisions, placing the fabric cuff beneath the skin exit site over the chest and catheter secured with 2 interrupted sutures of 3-0 nylon. Sterile dressing applied. Smaller and medium size dilators placed over the J-wire into the internal jugular vein and removed. Dilator and Peel-Away sheath placed over the J-wire into the superior vena cava. Dilator and J-wire removed. Catheter placed with Peel-Away sheath. Peel-Away sheath removed. Platysma was approximated with 4-0 Monocryl, skin with subdermal 4-0 Monocryl, and [facility] glue applied. Fluoroscopic images revealed good line placement. Each port aspirated of blood, flushed with saline solution, heparinized saline solution, 1000 units of heparin per mL, indicating volume of the port. Attention was turned to the left arm, where a proximal volar skin incision was made just below the antecubital fossa longitudinally, carried down through skin and subcutaneous tissue, and a good-sized antecubital vein identified. This was contrary to ultrasound vein mapping months ago suggesting poor veins. The vein dissected free. Perforating branch dissected free, but was small and ligated with 4-0 silk tie. Antecubital vein distally ligated on hand side with 3-0 silk tie, divided, spatulated, interrogated with coronary dilators, passing coronary dilators from 2 mm to 4 mm coronary dilator out the cephalic vein outflow without restriction. It also had communication outflow basilic vein communicating branch. The vein had been spatulated. Proximal radial artery dissected free and the patient was given 6000 units of heparin intravenously. Proximal and distal control of the proximal radial artery which was of good caliber obtained with vascular clamps. Longitudinal arteriotomy made sharply, elongated with Nam scissors. Vein appropriately spatulated, and end vein to side proximal radial artery anastomosis created with continuous suture of 6-0 Prolene, releasing clamps, noting good Doppler signal in the outflow. Good hemostasis noted. The patient was given protamine 25 mg intravenously by Anesthesia. Subcutaneous tissue was approximated with 3-0 Monocryl, skin with subdermal 4-0 Monocryl and [facility] glue applied. Job ID: [id number]
[2020-09-17] MEDS: Acetaminophen 325 MG TAB PO PRN ×2 (19:27→23:55)
[2020-09-17] MEDS: Atorvastatin Calcium 20 MG TAB PO SCH (20:07)
[2020-09-18 06:45] LABS: #Basophils 0.1 thou/uL (0.0-0.2); #Eosinphils 0.2 thou/uL (0.0-0.7); #Lymphocytes 1.5 thou/uL (1.20-3.40); #Monocytes 1.1 thou/uL (0.11-0.59); #Neutrophils 6.5 thou/uL (1.40-6.50); %Basophils 0.7 % (0.0-1.0); %Eosinophils 2.6 % (0.0-10.0); %Lymphocytes 15.6 % (21.0-51.0); %Monocytes 12.2 % (0.0-10.0); %Neutrophils 69.1 % (42.0-75.0); Mean Corpuscular HGB CONC 32.8 g/dL (32.0-36.0); Mean Corpuscular Hemoglobin 28.3 pg (27.0-31.0); Mean Corpuscular Volume 86.2 fL (78.0-98.0); Mean Platelet Volume 8.6 fL (7.4-10.4); Platelet Count 215 thou/uL (130-400); Red Blood Cell (RBC) Count 2.48 mill/uL (4.20-5.40); White Blood Cell (WBC) Count 9.4 thou/uL (4.8-10.8)
[2020-09-18 07:12] LABS: Anion Gap 15 mmol/L (10-20); BUN (Urea Nitrogen) 26 mg/dL (9.8-20.1); Calc. Creatinine Clearance 11 mL/min (70-130); Calcium 9.7 mg/dL (7.8-10.44); Carbon Dioxide 24 mmol/L (23-31); Chloride 105 mmol/L (98-107); Glucose 73 mg/dL (83-110); Potassium 4.6 mmol/L (3.5-5.1); Sodium 139 mmol/L (136-145)
[2020-09-18 07:19] VITALS: TEMP 99.1
[2020-09-18] MEDS: Sodium Bicarbonate Tab 325 MG TAB PO SCH ×2 (08:39→14:41)
[2020-09-18] MEDS: Gabapentin 100 MG CAP PO SCH (08:39)
[2020-09-18] MEDS: Metoprolol Tartrate 100 MG TAB PO SCH (08:40)
[2020-09-18] MEDS: Amlodipine 10 MG TAB PO SCH (08:40)
[2020-09-18] MEDS: cloNIDine 0.1 MG TAB PO SCH (08:40)
[2020-09-18] MEDS: hydrALAZINE 25 MG TAB PO SCH ×2 (08:40→14:40)
[2020-09-18 08:41] VITALS: BP 189/97
[2020-09-18] MEDS: Pantoprazole 40 MG VIAL IVP SCH (08:41)
--- NOTE | 2020-09-18 09:30 | PDOC.DS.DS ---
Provider Date of Admission: 09/15/20 17:24 Date of Discharge: 09/18/20 Admitting Provider: China Irwin MD Consultations: General Surgery, Nephrology Primary Care Physician: [facility] Hospital Course: Patient is a pleasant 75 years old -[place] female who has significant past medical history of ESRD, not yet on dialysis, who was sent to the ED with hyperkalemia. Patient recently had her labs drawn, and was told to come to the ED as it was abnormal. Patient is otherwise asymptomatic. Patient was seen by general surgery, subsequently had a dialysis catheter placed for dialysis. Nephrology was consulted. Patient received [id number] dialysis. Her labs normalized. She also received 2 unit of packed RBC transfusion for chronic renal disease. During her hospital stay, she reported that patient had an episode of hematemesis, however there is no change in her hemoglobin. Patient was seen by GI. Patient declined further work-up. For that reason recommend continue with empiric Protonix. At this time, casework specialist has arranged for her to have dialysis as outpatient, patient stable to discharge home follow-up with surgery as well as nephrology for ongoing dialysis. Procedures: Tunneled trialysis catheter placement by Dr. Luciano Resuscitation Status: 09/15/20 22:06 Resuscitation Status Routine Co-Sign Provider: Resuscitation Status: FULL: Full Resuscitation Lab Results: 09/18/20 06:30 09/18/20 06:30 Abnormal Lab Results - Last 48 hrs 09/16/20 00:45: Crossmatch See Detail 09/17/20 07:20: Creatinine 4.32 H 09/17/20 07:20: RBC 2.53 L, Hgb 6.9 L, Hct 21.5 L, RDW 17.4 H, Neutrophils % 75.1 H, Lymphocytes % 13.7 L, Monocytes % 10.1 H, Neutrophils # 6.9 H, Monocytes # 0.9 H 09/18/20 06:30: BUN 26 H, Creatinine 5.75 H 09/18/20 06:30: RBC 2.48 L, Hgb 7.0 L, Hct 21.4 L, RDW 18.0 H, Lymphocytes % 15.6 L, Monocytes % 12.2 H, Monocytes # 1.1 H Vitals: Vital Signs (12 hours) Temp Pulse Resp BP BP BP Pulse Ox 09/18/20 08:40 84 189/97 H 09/18/20 07:17 99.1 F 84 18 173/76 H 94 L 09/18/20 03:43 98.9 F 76 20 172/83 H 95 09/17/20 23:58 99.3 F 86 20 168/82 H 95 Weight Weight 185 lb Physical Exam: The patient was seen and examined on the day of discharge. General Appearance: NAD Eye: PERRL ENT: normocephalic atraumatic Neck: supple Respiratory: CTAB Cardiovascular: RRR Gastrointestinal: soft Extremities: no cyanosis Skin: normal turgor Neurological: cranial nerve grossly intact Musculoskeletal: normal tone PSYCH: normal affect, normal behavior, A&O x 3 Problem (1) ESRD needing dialysis Code(s): N18.6 - END STAGE RENAL DISEASE; Z99.2 - DEPENDENCE ON RENAL DIALYSIS Status: Acute (2) Hyperkalemia Code(s): E87.5 - HYPERKALEMIA Status: Acute (3) Chronic anemia Code(s): D64.9 - ANEMIA, UNSPECIFIED Status: Chronic (4) Essential hypertension Code(s): I10 - ESSENTIAL (PRIMARY) HYPERTENSION Status: Chronic (5) History of diet-controlled gestational diabetes mellitus Code(s): Z86.32 - PERSONAL HISTORY OF GESTATIONAL DIABETES Status: Chronic Time Spent in discharge related activities (mins): 35 Plan Prescriptions: Pantoprazole [Protonix] 40 mg PO DAILY #30 tab Home Medications: Medication Instructions Recorded Confirmed Type Amlodipine Besylate [amLODIPine 10 mg PO DAILY 09/15/20 09/15/20 History Besylate] Atorvastatin Calcium 20 mg PO HS 09/15/20 09/15/20 History Gabapentin 100 mg PO BID 09/15/20 09/15/20 History Metoprolol Tartrate 100 mg PO DAILY 09/15/20 09/15/20 History Sodium Bicarbonate 2 tab PO TID 09/15/20 09/15/20 History cloNIDine [Catapres] 0.1 mg PO BID 09/15/20 09/15/20 History hydrALAZINE HCl [Hydralazine HCl] 100 mg PO TID 09/15/20 09/15/20 History Pantoprazole [Protonix] 40 mg PO DAILY #30 tab 09/18/20 Rx Allergies: No Known Allergies Allergy (Verified 09/15/20 21:10) verified by patient Discharge Instructions:: Activity:: Activity as Tolerated Nourishment:: Low Sodium Diet Referrals: [facility] [Outside] - 09/19/20 1:00 pm (Dialysis chair time will be Tuesday/Tuesday/Tuesday at 2pm. On Tuesday, Sep.19, please arrive at 1pm to complete paperwork prior to your first treatment.) Lonnie Luciano MD [Active] - 3-4 Weeks Jung Cornelius MD [Active] - (FOR DIALYSIS) [facility] [Primary Care Provider] - 7 Days Disposition: HOME Quality CORE MEASURES:: N/A
--- NOTE | 2020-09-18 10:35 | PRG ---
DATE OF SERVICE: 09/18/2020 Ms. Pineda is doing well today. I saw her 6 or 7 months ago and ultrasound vein mapping suggested inadequate veins for a fistula. This hospitalization, she presented in need of acute dialysis access, undergoing placement of a Trialysis catheter and eventually placement of a hemodialysis catheter and a left arm fistula. Findings at operation were that she had adequate vein. Hopefully, her cephalic vein will mature with time. This morning she has good left hand function and a good thrill and bruit in her left upper arm and a well-healed surgical incision. The patient is ready to be discharged home at anytime. Her groin dialysis catheter can be used for IV access and blood draws until the time of discharge. It should be removed at the time of discharge. From a surgical standpoint, the patient will be discharged home at anytime. I will see her as needed this hospitalization, recommended that she follow up with me in 3 to 4 weeks. Please call if necessary. Job ID: [id number]
[2020-09-18] MEDS ORDERED: Heparin 10,000 UNITS/ 10 ML VIAL ONE (11:34)
[2020-09-18] MEDS: EPOETIN ALFA-EPBX (ESRD) 10,000 UNIT/ML VIAL IVP SCH (14:41)
--- NOTE | 2020-09-18 19:38 | PRG ---
DATE OF SERVICE: 09/18/2020 OBJECTIVE: GENERAL: This is a well-built female, in no apparent distress. VITAL SIGNS: Temperature 99.1, pulse 84, respiratory rate 20, blood pressure 189/97. LABORATORY DATA: Potassium 4.6, BUN is 26, creatinine is 5.7. ASSESSMENT AND PLAN: 1. End-stage renal disease. Continue dialysis as tolerated. 2. Edema. 3. Hypertension. 4. Anemia of chronic disease. 5. Hyperkalemia, better. Continue dialysis as tolerated. Job ID: [id number]
== END 2020-09-18 16:14 | disposition home or self-care (01) | DRG 628 ==
LOC: ERS 12:23 → T4-B 17:24
PROVIDERS: ADMIT Internal Medicine; ATTEND Family Medicine
PROC: 02HV33Z Insertion of Infusion Device into Superior Vena Cava, Percutaneous Approach (ICD-10-PCS; 2020-09-15)
PROC: 30233N1 Transfusion of Nonautologous Red Blood Cells into Peripheral Vein, Percutaneous Approach (ICD-10-PCS; 2020-09-16)
PROC: 5A1D70Z Performance of Urinary Filtration, Intermittent, Less than 6 Hours Per Day (ICD-10-PCS; 2020-09-16)
PROC: 031C0ZF Bypass Left Radial Artery to Lower Arm Vein, Open Approach (ICD-10-PCS; principal; 2020-09-17)
PROC: 0JH63XZ Insertion of Tunneled Vascular Access Device into Chest Subcutaneous Tissue and Fascia, Percutaneous Approach (ICD-10-PCS; 2020-09-17)
PROC: 05HY33Z Insertion of Infusion Device into Upper Vein, Percutaneous Approach (ICD-10-PCS; 2020-09-17)
DX: E87.5 Hyperkalemia (principal); N18.6 End stage renal disease; I12.0 Hypertensive chronic kidney disease with stage 5 chronic kidney disease or end stage renal disease; K92.0 Hematemesis; Z20.822 Contact with and (suspected) exposure to COVID-19; D50.0 Iron deficiency anemia secondary to blood loss (chronic); D63.1 Anemia in chronic kidney disease; Z99.2 Dependence on renal dialysis; Z86.32 Personal history of gestational diabetes
CPT/HCPCS: 36415; 36416; 36430; 36556; 71045; 80048; 80053; 82607; 82728; 82746; 83540; 83550; 83605; 83735; 84484; 85025; 86580; 86704; 86706; 86803; 86850; 86900; 86901; 87340; 87635; 90935; 93005; C1752; C9113; G0257; J0171; J0690; J1642; J1644; J2001; J2704; J2720; J3010; P9016; Q5105; S0020; U0003; U0005